=== PATIENT | female | born 1975 | race Caucasian/White ===

== ENCOUNTER → 2020-07-06 | Outpatient (CLI) | payer BC ==
[~2020-07-06] MED LIST: AUGMENTIN 875-1 EACH PO; LOMOTIL 2.5-0.1 EACH PO; NORCO 7.5-3251 EACH PO; SUMATRIPTAN-NA1 EACH PO; TOPROL XL25 MG PO
== END ==
LOC: LAB 22:52
DX: U07.1 COVID-19 (principal)
CPT/HCPCS: U0002

== ENCOUNTER → 2020-09-04 | Outpatient (CLI) | payer BC | LOC: SLEEP 15:16 | DX: R06.83 Snoring (principal); R06.89 Other abnormalities of breathing; G47.8 Other sleep disorders; G43.909 Migraine, unspecified, not intractable, without status migrainosus | CPT/HCPCS: 95810 ==

== ENCOUNTER 2020-11-30 10:50 | Emergency (ER) | payer BC ==
[2020-11-30] MEDS ORDERED: AUGMENTIN 875-1 EACH PO (11:40)
[2020-11-30] MEDS ORDERED: BACTRIM DS TAB1 EACH PO (11:40)
== END 2020-11-30 11:46 | disposition home or self-care (01) ==
LOC: ER1 10:50
DX: S90.451A Superficial foreign body, right great toe, initial encounter (principal); X58.XXXA Exposure to other specified factors, initial encounter
CPT/HCPCS: 99283